=== PATIENT | male | born 1965 | race Caucasian/White ===

== ENCOUNTER 2016-12-17 18:25 | Inpatient (IN) | payer MEDICAID ==
[~2016-12-17] VITALS: Ht 185.4 cm; Wt 119.3 kg
[~2016-12-17 18:25] MED LIST: ALLO300T2 PO; ALPR0.5T8 PO; DIGO125T4 PO; DILT300C3 PO; DIPH25CA83 PO; FENO145T PO; LOSA100T11 PO; LOSA100T15 PO; METO25TA3 PO; OMEP20CA10 PO; PARO-41 PO; VIS50 PO; [UNRECOGNIZED DRUG - CODE] PO
[2016-12-17 18:26] VITALS: BP 110/56; PULSE 58; RESP 19; TEMP 97.9; O2SAT 97
[2016-12-17 19:09] LABS: BASOPHILS # (AUTO) 0.1 K/uL (0.0-0.2); BASOPHILS % (AUTO) 0.8 % (0.0-2.0); EOSINOPHILS # (AUTO) 0.1 K/uL (0.0-0.4); HEMATOCRIT 46.9 % (36-54); HEMOGLOBIN 16.1 g/dL (14.0-18.0); LYMPHOCYTES # (AUTO) 1.4 K/uL (1.0-5.5); LYMPHOCYTES % (AUTO) 20.9 % (20.5-51.5); MEAN CORPUSCULAR HEMOGLOBIN 33 pg (27-31); MEAN CORPUSCULAR HGB CONC 34 % (32-36); MEAN CORPUSCULAR VOLUME 96 fL (79.0-98.0); MONOCYTES # (AUTO) 0.7 K/uL (0.0-1.0); MONOCYTES % (AUTO) 10.8 % (1.7-9.3); NEUTROPHILS # (AUTO) 4.3 K/uL (1.8-7.7); NEUTROPHILS % (AUTO) 66.5 % (40.0-70.0); PLATELET COUNT (AUTO) 183 K/uL (130-430); RED BLOOD CELL COUNT(AUTO) 4.91 MIL/uL (4.2-6.2); RED CELL DISTRIBUTION WIDTH 14.1 % (9.0-15.0); WHITE BLOOD COUNT (AUTO) 6.6 K/uL (4.8-10.8)
[2016-12-17 19:17] LABS: INR 1.1 (0.80-1.20); PROTHROMBIN TIME 11.6 SECS (9.5-12.5)
[2016-12-17 19:30] LABS: CALCIUM 8.8 mg/dL (8.4-11.0); POTASSIUM 4.3 mmol/L (3.5-5.1)
[2016-12-17 19:36] LABS: ALBUMIN 3.8 g/dL (3.4-4.8); DIGOXIN 0.6 ng/mL (0.80-2.00); FREE T4 (FREE THYROXINE) 0.8 ng/dL (0.6-1.6); TOTAL BILIRUBIN 0.9 mg/dL (0.0-1.0); TOTAL PROTEIN, SERUM 7.9 g/dL (6.4-8.3)
[2016-12-17] MEDS ORDERED: ACETAMINOPHEN 325 MG TABLET PO ONE (19:45)
[2016-12-17] MEDS ORDERED: ASPIRIN 81 MG TAB.CHEW PO ONE (19:45)
[2016-12-17] MEDS ORDERED: ACETAMINOPHEN 325 MG TABLET ONE (19:49)
[2016-12-17] MEDS ORDERED: ASPIRIN 81 MG TAB.CHEW ONE (19:51)
[2016-12-17] MEDS ORDERED: SPIR50TA PO (20:23)
[2016-12-17 20:48] LABS: BILIRUBIN,URINE 2+ (NEGATIVE); BLOOD, URINE NEGATIVE (NEGATIVE); CLARITY/URINE HAZY (CLEAR); COLOR,URINE AMBER (YELLOW); GLUCOSE,URINE NEGATIVE (NEGATIVE); KETONES,URINE 1+ (NEGATIVE); LEUKOCYTE ESTERASE ,URINE NEGATIVE (NEGATIVE); NITRITE, URINE NEGATIVE (NEGATIVE); PH,URINE 5.5 (5.0-8.0); PROTEIN URINE 2+ (NEGATIVE)
[2016-12-17] MEDS ORDERED: LORazepam 2 MG/ML VIAL IVP PRN (21:00)
[2016-12-17] MEDS ORDERED: FOLIC ACID 1 MG, THIAMINE HCL 100 MG, MAGNESIUM SULFATE 1 GM, MVI 10 ML in NACL 0.9% 1,... IV ONE (21:00)
[2016-12-17 21:10] LABS: BACTERIA,URINE FEW /HPF (None Seen); MUCUS,URINE 3+ /LPF (None Seen); RBC,URINE 0-3 /HPF (0-3)
[2016-12-17 21:11] LABS: BARBITURATE, URINE NEGATIVE (NEG <=200); BENZODIAZEPINE, URINE POSITIVE (NEG <=150); FINE GRANULAR CASTS,URINE 30-50 /LPF (None Seen); METHAMPHETAMINES SCREEN,URINE NEGATIVE (NEG <=500); URINE AMPHETAMINE NEGATIVE (NEG <=500); URINE METHADONE NEGATIVE (NEG <=200)
[2016-12-17 21:12] LABS: CANNABINOID, URINE POSITIVE (NEG <=50); COCAINE, URINE NEGATIVE (NEG <=150); OPIATE, URINE NEGATIVE (NEG <=100); PHENCYCLIDINE SCREEN,URINE NEGATIVE (NEG <=25); UR TRICYCLIC ANTIDEPRESSANTS NEGATIVE (NEG <=300); URINE OXYCODONE SCREEN NEGATIVE (NEG <=100); URINE PROPOXYPHENE SCREEN NEGATIVE (NEG <=300)
[2016-12-17] MEDS ORDERED: MVI 10 ML VIAL IV ONE (21:12)
[2016-12-17] MEDS ORDERED: THIAMINE HCL 100 MG/ML VIAL ONE (21:12)
[2016-12-17] MEDS ORDERED: MAGNESIUM SULFATE 1 GM/2 ML VIAL ONE (21:12)
[2016-12-17] MEDS ORDERED: FOLIC ACID 5 MG/ML VIAL IV ONE (21:12)
[2016-12-17 22:00] VITALS: BP 141/90; PULSE 58; RESP 18; TEMP 97.6; O2SAT 98
[2016-12-17] MEDS: BANANA BAG 1 EA, FOLIC ACID 1 MG, THIAMINE HCL 100 MG, MAGNESIUM SULFATE 1 GM, MVI 10 M... IV SCH ×5 (22:52)
[2016-12-17] MEDS: SPIRONOLACTONE 50 MG TABLET (ALDACTONE) PO SCH (22:53)
[2016-12-17 23:45] VITALS: BP 150/85; PULSE 76; RESP 18; TEMP 98.6; O2SAT 97
[2016-12-18] MEDS: D5NS 1,000 ML IV SCH ×3 (01:37→21:00)
[2016-12-18 04:30] VITALS: BP 150/94; PULSE 85; RESP 18; TEMP 97.1; O2SAT 96
[2016-12-18] MEDS ORDERED: MORPHINE 2 MG/ML INJ. SYRINGE IVP PRN (05:30)
[2016-12-18] MEDS: PANTOPRAZOLE SODIUM 40 MG/VIAL (PROTONIX) IVP SCH ×2 (05:30→09:00)
[2016-12-18] MEDS: ASPIRIN 325 MG TABLET PO SCH ×2 (05:30→09:00)
[2016-12-18 08:00] VITALS: BP 149/117; PULSE 81; RESP 18; TEMP 97.8; O2SAT 99
[2016-12-18] MEDS ORDERED: PARoxetine HCL 20 MG TABLET PO SCH (09:00)
[2016-12-18] MEDS: OMEPRAZOLE 20 MG CAPSULE.DR (PriLOSEC) PO SCH (09:00)
[2016-12-18] MEDS ORDERED: DILTIAZEM HCL 300 MG CAP.SR.24H PO SCH (09:00)
[2016-12-18] MEDS: DIGOXIN 0.125 MG TABLET PO SCH (09:00)
[2016-12-18] MEDS: DILTIAZEM HCL 120 MG CAP.SR.24H PO SCH (09:00)
[2016-12-18] MEDS: METOPROLOL SUCCINATE 25 MG TAB.SR.24H (TOPROL XL) PO SCH (09:00)
[2016-12-18] MEDS: SPIRONOLACTONE 50 MG TABLET (ALDACTONE) PO SCH ×2 (09:00→21:44)
[2016-12-18] MEDS: ALLOPURINOL 300 MG TABLET (ZYLOPRIM) PO SCH (09:00)
[2016-12-18] MEDS: DILTIAZEM HCL 180 MG CAP.SR.24H PO SCH (09:00)
[2016-12-18 12:00] VITALS: BP 123/84; PULSE 82; RESP 16; TEMP 97.8; O2SAT 98
[2016-12-18 16:18] VITALS: BP 128/82; PULSE 83; RESP 16; TEMP 98; O2SAT 99
[2016-12-18 19:40] VITALS: BP 152/84; PULSE 60; RESP 21; TEMP 96.7; O2SAT 98
[2016-12-18] MEDS: BANANA BAG 1 EA, FOLIC ACID 1 MG, THIAMINE HCL 100 MG, MAGNESIUM SULFATE 1 GM, MVI 10 M... IV SCH ×5 (21:00)
[2016-12-18] MEDS ORDERED: TEMAZEPAM 15 MG CAPSULE PO PRN (21:00)
[2016-12-18 23:45] VITALS: BP 150/83; PULSE 92; RESP 20; TEMP 98.1; O2SAT 97
[2016-12-19] MEDS: D5NS 1,000 ML IV SCH (03:00)
[2016-12-19 04:21] VITALS: BP 140/88; PULSE 87; RESP 18; TEMP 98.9; O2SAT 90
[2016-12-19 08:00] VITALS: BP 150/92; PULSE 69; RESP 17; TEMP 97.8; O2SAT 98
[2016-12-19] MEDS: PANTOPRAZOLE SODIUM 40 MG/VIAL (PROTONIX) IVP SCH (08:14)
[2016-12-19] MEDS: ASPIRIN 325 MG TABLET PO SCH (08:14)
[2016-12-19] MEDS: ALLOPURINOL 300 MG TABLET (ZYLOPRIM) PO SCH (08:15)
[2016-12-19] MEDS: OMEPRAZOLE 20 MG CAPSULE.DR (PriLOSEC) PO SCH (08:15)
[2016-12-19] MEDS: DILTIAZEM HCL 120 MG CAP.SR.24H PO SCH (08:16)
[2016-12-19] MEDS: DILTIAZEM HCL 180 MG CAP.SR.24H PO SCH (08:16)
[2016-12-19] MEDS: DIGOXIN 0.125 MG TABLET PO SCH (08:17)
[2016-12-19] MEDS: METOPROLOL SUCCINATE 25 MG TAB.SR.24H (TOPROL XL) PO SCH (08:17)
[2016-12-19] MEDS: SPIRONOLACTONE 50 MG TABLET (ALDACTONE) PO SCH (08:18)
[2016-12-19 12:00] VITALS: BP 155/79; PULSE 60; RESP 20; TEMP 98; O2SAT 96
[2016-12-19 13:41] VITALS: BP 148/79; PULSE 87; RESP 20; TEMP 97.8; O2SAT 96
[2016-12-19] MEDS ORDERED: RIVAROXABAN 10 MG TABLET PO SCH (18:00)
[2016-12-19] MEDS ORDERED: RIVAROXABAN 20 MG TABLET PO SCH (18:00)
== END 2016-12-19 14:15 | disposition home or self-care (01) | DRG 45 ==
LOC: SED 18:25 → STU 21:11
PROVIDERS: ADMIT Internal Medicine Hospice and Palliative Medicine; ATTEND Internal Medicine Hospice and Palliative Medicine
DX: I63.9 Cerebral infarction, unspecified (principal); I48.2 Chronic atrial fibrillation; I10 Essential (primary) hypertension; F10.20 Alcohol dependence, uncomplicated; Z79.899 Other long term (current) drug therapy
CPT/HCPCS: 36415; 70450-TC; 71020-TC; 74000-TC; 80053; 80162-TC; 80307; 81000-TC; 82140-TC; 83605; 83880; 84439; 84484; 85025; 85610-TC; 87040-TC; 93005; 93306; 93880; 96365; 99285; C9113; G0482; J2060; J3411; J3475; J3490; J7030; J7042

== ENCOUNTER 2018-07-14 18:38 | Emergency (ER) | payer MEDICAID ==
[~2018-07-14] VITALS: Ht 185.4 cm; Wt 122.5 kg
[~2018-07-14 18:38] MED LIST changes: +DIGO-31 PO; -DIGO125T4 PO; -DIPH25CA83 PO; -FENO145T PO; -LOSA100T11 PO; -LOSA100T15 PO; +SPIR50TA PO; -VIS50 PO; -[UNRECOGNIZED DRUG - CODE] PO
[2018-07-14 18:48] VITALS: BP_SYST 121
--- NOTE | 2018-07-14 18:53 | NUR ---
Placed in room 03. Placed on terminal make up operator, blood pressure machine and pulse oximeter. To gown for exam. Side rails up.
--- NOTE | 2018-07-14 19:00 | NUR ---
53year old male presented to ED with complaints of HX OF AFIB AND "IT'S FLARING UP TODAY" STARTED 7 DAYS AGO; pt also reports RUQ abd pain x 9days; reports +N/V/D; awaiting for MD assess/eval
--- NOTE | 2018-07-14 19:10 | NUR ---
Dr. Koehler at bedside for assess/eval; family present at bedside
[2018-07-14 19:42] LABS: BASOPHILS # (AUTO) 0.1 K/uL (0.0-0.2); BASOPHILS % (AUTO) 1.2 % (0.0-2.0); EOSINOPHILS # (AUTO) 0.1 K/uL (0.0-0.4); EOSINOPHILS % (AUTO) 1.4 % (0.0-4.0); HEMATOCRIT 47.1 % (36-54); HEMOGLOBIN 15.9 g/dL (14.0-18.0); LYMPHOCYTES # (AUTO) 1.8 K/uL (1.0-5.5); LYMPHOCYTES % (AUTO) 29.8 % (20.5-51.5); MEAN CORPUSCULAR HEMOGLOBIN 33 pg (27-31); MEAN CORPUSCULAR HGB CONC 34 % (32-36); MEAN CORPUSCULAR VOLUME 99 fL (79.0-98.0); MONOCYTES # (AUTO) 0.6 K/uL (0.0-1.0); MONOCYTES % (AUTO) 9.5 % (1.7-9.3); NEUTROPHILS # (AUTO) 3.5 K/uL (1.8-7.7); NEUTROPHILS % (AUTO) 58.1 % (40.0-70.0); PLATELET COUNT (AUTO) 193 K/uL (130-430); RED BLOOD CELL COUNT(AUTO) 4.78 MIL/uL (4.2-6.2); RED CELL DISTRIBUTION WIDTH 13.1 % (9.0-15.0); WHITE BLOOD COUNT (AUTO) 6.1 K/uL (4.8-10.8)
[2018-07-14 19:47] LABS: CALCIUM 8.9 mg/dL (8.4-11.0); CREATININE 0.97 mg/dL (0.55-1.30); POTASSIUM 4.3 mmol/L (3.5-5.1)
[2018-07-14 19:51] LABS: INR 1.2 (0.80-1.20); PROTHROMBIN TIME 11.9 SECS (9.5-12.5)
[2018-07-14 19:55] LABS: ALBUMIN 2.8 g/dL (3.4-4.8); TOTAL BILIRUBIN 0.7 mg/dL (0.0-1.0)
--- NOTE | 2018-07-14 20:05 | NUR ---
pt resting comfortably in bed NAD; reports 07/08 RUQ abd; VSS BP 120/69 P99 R14 O2sat 98%; family at bedside; awaiting for Dr. Vamshi santos/assess
--- NOTE | 2018-07-14 20:25 | NUR ---
Tramadol and Zofran given as ordered; will reasses and continue to monitor
[2018-07-14] MEDS ORDERED: ONDANSETRON 4 MG ODT TAB PO ONE (20:30)
[2018-07-14] MEDS ORDERED: traMADol HCL HCL 50 MG TABLET (ULTRAM) PO ONE (20:30)
--- NOTE | 2018-07-14 21:24 | NUR ---
Dr. Bonds at bedside discussing plan of care and treatment with pt/family
[2018-07-14 21:50] VITALS: BP_SYST 102
--- NOTE | 2018-07-14 21:50 | NUR ---
Patient given written and verbal discharge instructions and verbalizes understanding. ER MD discussed with patient the results and treatment provided. Patient in stable condition. ID arm band removed. Rx of Tylenol #3 given. Patient educated on pain management and to follow up with PMD within 2-3days. Pain Scale 5/10; tolerable and requires no further intervention; pt and MD agreeable to discharge home. Opportunity for questions provided and answered. Medication side effect fact sheet provided.
== END 2018-07-14 21:50 | disposition home or self-care (01) ==
LOC: SED 18:38
DX: R10.13 Epigastric pain (principal); F10.10 Alcohol abuse, uncomplicated; R00.2 Palpitations; R06.02 Shortness of breath; I48.91 Unspecified atrial fibrillation; I10 Essential (primary) hypertension; Z79.899 Other long term (current) drug therapy
CPT/HCPCS: 36415; 71045; 74176; 80053; 82150; 82550; 83690; 83880; 84484; 85025; 85610; 85730; 93005; 99285; G0482; Q0162

== ENCOUNTER 2018-09-07 05:47 | Inpatient (IN) | payer MEDICAID ==
[2018-09-07] VITALS (19 sets, daily range): BP systolic 77–130
[~2018-09-07] VITALS: Ht 185.4 cm; Wt 121.6 kg
[2018-09-07] MEDS ORDERED: FUROSEMIDE 100 MG/10 ML VIAL IVP ONE (06:00)
[2018-09-07] MEDS ORDERED: SPIR25TA PO (06:04)
[2018-09-07] MEDS ORDERED: DILT240C54 PO (06:04)
[2018-09-07] MEDS ORDERED: APIX2.5T PO (06:04)
[2018-09-07] MEDS ORDERED: LIDOCAINE/EPI 1% 1:100000 20 ML VIAL INJ ONE (06:22)
[2018-09-07 06:26] LABS: HEMATOCRIT 49.8 % (36-54); HEMOGLOBIN 16.4 g/dL (14.0-18.0); MEAN CORPUSCULAR HEMOGLOBIN 32 pg (27-31); MEAN CORPUSCULAR HGB CONC 33 % (32-36); MEAN CORPUSCULAR VOLUME 98 fL (79.0-98.0); PLATELET COUNT (AUTO) 201 K/uL (130-430); RED BLOOD CELL COUNT(AUTO) 5.08 MIL/uL (4.2-6.2); RED CELL DISTRIBUTION WIDTH 13.2 % (9.0-15.0); WHITE BLOOD COUNT (AUTO) 15.6 K/uL (4.8-10.8)
[2018-09-07 06:29] LABS: CREATININE 2.66 mg/dL (0.55-1.30)
[2018-09-07 06:34] LABS: ALBUMIN 2.9 g/dL (3.4-4.8); TOTAL BILIRUBIN 10.7 mg/dL (0.0-1.0)
[2018-09-07 06:52] LABS: BAND % (MANUAL) 19 % (0-6); BASOPHILS % (MANUAL) 0 % (0-2); EOSINOPHILS % (MANUAL) 0 % (0-7); LYMPHOCYTES % (MANUAL) 2 % (20-46); METAMYELOCYTES % 1 % (0-0); MONOCYTES % (MANUAL) 4 % (0-11)
[2018-09-07 06:53] LABS: INR 1.4 (0.80-1.20); PROTHROMBIN TIME 14.8 SECS (9.5-12.5)
[2018-09-07] MEDS ORDERED: ALBUMIN HUMAN 25% 50 ML IV ONE (07:00)
[2018-09-07 07:53] LABS: APPEARANCE,SPUN,BODY FLUID CLEAR (CLEAR); BODY FLUID COLOR YELLOW (LT YELLOW); BODY FLUID SOURCE/ TYPE PARACENTESIS; BODY FLUID TOTAL VOLUME 7600 mL; SOURCE/TYPE ,BODY FLUID PARACENTESIS
[2018-09-07 07:55] LABS: BF APPEARANCE UNSPUN HAZY (CLEAR)
[2018-09-07] MEDS ORDERED: cefTRIAXone 1 GM in D5W 50 ML IV ONE (08:00)
[2018-09-07] MEDS ORDERED: NACL 0.9% 1,000 ML IV ONE ×2 (08:00→11:15)
[2018-09-07] MEDS ORDERED: NS 250 ML IV ONE (08:15)
[2018-09-07] MEDS ORDERED: cefTRIAXone 1 GM VIAL ONE (08:38)
[2018-09-07 09:17] LABS: MONOCYTES,BODY FLUID 49 %; NEUTROPHIL, BODY FLUID 51 %
[2018-09-07] MEDS: NACL 0.9% 1,000 ML IV SCH ×2 (10:10→14:45)
[2018-09-07] MEDS ORDERED: ONDANSETRON HCL 4 MG/2 ML VIAL IVP PRN (10:30)
[2018-09-07] MEDS ORDERED: ALPRAZolam 0.25 MG TABLET PO SCH (10:30)
[2018-09-07] MEDS ORDERED: ACETAMINOPHEN 325 MG TABLET PO PRN (10:30)
[2018-09-07] MEDS ORDERED: ALBUMIN HUMAN 5% 250 ML IV ONE ×2 (10:45→15:00)
[2018-09-07 11:02] LABS: RBC, BODY FLUID 627 /uL
[2018-09-07 11:03] LABS: WBC, BODY FLUID 459 /uL
[2018-09-07 11:34] LABS: BODY FLUID GLUCOSE 114 mg/dL; BODY FLUID TOTAL PROTEIN 2.6 g/dL
[2018-09-07] MEDS: PIPERACILLIN/TAZO 2.25G/DEX-IS 50 ML IV SCH ×3 (11:37→22:27)
[2018-09-07] MEDS ORDERED: PIPERACILLIN/TAZO 3.375/DEX-IS 50 ML IV SCH (12:00)
[2018-09-07] MEDS: HYDROcodone/ACETAMIN 10-325 MG TAB PO PRN ×2 (13:46→22:28)
[2018-09-07] MEDS ORDERED: NOREPINEPHRINE 4 MG/4 ML VIAL IV ONE (15:29)
[2018-09-07] MEDS: NOREPINEPHRINE BITARTRATE 4 MG in D5W 246 ML IV PRN ×2 (15:35→23:57)
[2018-09-07] MEDS: LORazepam 2 MG/ML VIAL IVP PRN ×2 (17:29→22:28)
[2018-09-07] MEDS: APIXABAN 2.5 MG TABLET PO SCH (21:24)
[2018-09-08] VITALS (24 sets, daily range): BP systolic 92–123
[2018-09-08] MEDS: NACL 0.9% 1,000 ML IV SCH (01:23)
[2018-09-08] MEDS: PIPERACILLIN/TAZO 2.25G/DEX-IS 50 ML IV SCH ×4 (05:01→22:29)
[2018-09-08] MEDS: OMEPRAZOLE 20 MG CAPSULE.DR (PriLOSEC) PO SCH (06:02)
[2018-09-08 07:23] LABS: BASOPHILS % (AUTO) 0.1 % (0.0-2.0); HEMATOCRIT 40.9 % (36-54); LYMPHOCYTES # (AUTO) 0.5 K/uL (1.0-5.5); MEAN CORPUSCULAR HEMOGLOBIN 31 pg (27-31); MEAN CORPUSCULAR HGB CONC 32 % (32-36); MEAN CORPUSCULAR VOLUME 97 fL (79.0-98.0); MONOCYTES % (AUTO) 5.5 % (1.7-9.3); NEUTROPHILS # (AUTO) 16.8 K/uL (1.8-7.7); NEUTROPHILS % (AUTO) 91.4 % (40.0-70.0); PLATELET COUNT (AUTO) 133 K/uL (130-430); RED BLOOD CELL COUNT(AUTO) 4.22 MIL/uL (4.2-6.2); RED CELL DISTRIBUTION WIDTH 13.2 % (9.0-15.0)
[2018-09-08 08:02] LABS: ALBUMIN 2.4 g/dL (3.4-4.8); CALCIUM 8.4 mg/dL (8.4-11.0); CREATININE 1.6 mg/dL (0.55-1.30); PHOSPHORUS 4.5 mg/dL (2.7-4.5); POTASSIUM 3.9 mmol/L (3.5-5.1); TOTAL BILIRUBIN 7.9 mg/dL (0.0-1.0)
[2018-09-08] MEDS: ALLOPURINOL 300 MG TABLET (ZYLOPRIM) PO SCH (08:53)
[2018-09-08] MEDS: THIAMINE HCL 100 MG TABLET PO SCH (08:54)
[2018-09-08] MEDS: DILTIAZEM HCL 240 MG CAP.SR.24H PO SCH (08:54)
[2018-09-08] MEDS: METOPROLOL SUCCINATE 25 MG TAB.SR.24H (TOPROL XL) PO SCH (08:55)
[2018-09-08] MEDS: FOLIC ACID 1 MG TABLET PO SCH (08:55)
[2018-09-08] MEDS: MULTIVITS,CA,MINERALS/IRON/FA 1 TABLET PO SCH (08:55)
[2018-09-08] MEDS: PARoxetine HCL 20 MG TABLET PO SCH (08:55)
[2018-09-08] MEDS: APIXABAN 2.5 MG TABLET PO SCH ×2 (08:56→20:03)
[2018-09-08] MEDS ORDERED: SPIRONOLACTONE 25 MG TABLET (ALDACTONE) PO SCH (09:00)
[2018-09-08] MEDS ORDERED: ALBUMIN HUMAN 25% 50 ML IV ONE (09:45)
[2018-09-08 09:51] LABS: WHITE BLOOD COUNT (AUTO) 18.3 K/uL (4.8-10.8)
[2018-09-08] MEDS: LORazepam 2 MG/ML VIAL IVP PRN ×2 (10:57→22:29)
[2018-09-08] MEDS: KCL 20 mEq in D5/0.45NS 1000mL 1,000 ML IV SCH ×2 (13:04→22:28)
[2018-09-08] MEDS ORDERED: DIGOXIN 0.5 MG/2 ML AMP IVP ONE (13:15)
[2018-09-08] MEDS ORDERED: DILTIAZEM HCL 25 MG/5 ML VIAL IVP ONE (13:15)
[2018-09-08] MEDS: HYDROcodone/ACETAMIN 5-325 MG TAB (NORCO/ VICODIN) PO PRN (16:51)
[2018-09-08] MEDS ORDERED: DILTIAZEM HCL 125 MG in D5W 100 ML IV SCH (18:30)
[2018-09-08] MEDS: HYDROcodone/ACETAMIN 10-325 MG TAB PO PRN (21:40)
[2018-09-08] MEDS ORDERED: DILTIAZEM HCL 25 MG/5 ML VIAL IVP PRN (22:45)
[2018-09-09] VITALS (13 sets, daily range): BP systolic 94–113
[2018-09-09] MEDS: OMEPRAZOLE 20 MG CAPSULE.DR (PriLOSEC) PO SCH (05:04)
[2018-09-09] MEDS: PIPERACILLIN/TAZO 2.25G/DEX-IS 50 ML IV SCH ×4 (05:05→23:22)
[2018-09-09 06:13] LABS: EOSINOPHILS # (AUTO) 0.1 K/uL (0.0-0.4); LYMPHOCYTES # (AUTO) 0.4 K/uL (1.0-5.5); MONOCYTES # (AUTO) 0.4 K/uL (0.0-1.0); NEUTROPHILS # (AUTO) 4.1 K/uL (1.8-7.7); RED BLOOD CELL COUNT(AUTO) 4.12 MIL/uL (4.2-6.2)
[2018-09-09 06:36] LABS: ALBUMIN 2.2 g/dL (3.4-4.8); CALCIUM 8.3 mg/dL (8.4-11.0); CREATININE 1.05 mg/dL (0.55-1.30); POTASSIUM 4.5 mmol/L (3.5-5.1); TOTAL BILIRUBIN 7.6 mg/dL (0.0-1.0)
[2018-09-09 07:12] LABS: BASOPHILS % (AUTO) 0.5 % (0.0-2.0); EOSINOPHILS % (AUTO) 1.8 % (0.0-4.0); HEMATOCRIT 40.4 % (36-54); HEMOGLOBIN 13.2 g/dL (14.0-18.0); LYMPHOCYTES % (AUTO) 8.5 % (20.5-51.5); MEAN CORPUSCULAR HEMOGLOBIN 32 pg (27-31); MEAN CORPUSCULAR HGB CONC 33 % (32-36); MEAN CORPUSCULAR VOLUME 98 fL (79.0-98.0); NEUTROPHILS % (AUTO) 81.2 % (40.0-70.0); PLATELET COUNT (AUTO) 103 K/uL (130-430); RED CELL DISTRIBUTION WIDTH 13.5 % (9.0-15.0)
[2018-09-09 07:35] LABS: C-REACTIVE PROTEIN QUANT 13.6 mg/dL (0-0.5)
[2018-09-09] MEDS: DIGOXIN 0.5 MG/2 ML AMP IVP SCH (08:25)
[2018-09-09] MEDS: MULTIVITS,CA,MINERALS/IRON/FA 1 TABLET PO SCH (08:28)
[2018-09-09] MEDS: PARoxetine HCL 20 MG TABLET PO SCH (08:29)
[2018-09-09] MEDS: THIAMINE HCL 100 MG TABLET PO SCH (08:29)
[2018-09-09] MEDS: APIXABAN 2.5 MG TABLET PO SCH ×2 (08:29→21:07)
[2018-09-09] MEDS: FOLIC ACID 1 MG TABLET PO SCH (08:29)
[2018-09-09] MEDS: DILTIAZEM HCL 240 MG CAP.SR.24H PO SCH (08:30)
[2018-09-09] MEDS: METOPROLOL SUCCINATE 25 MG TAB.SR.24H (TOPROL XL) PO SCH (08:31)
[2018-09-09] MEDS: ALLOPURINOL 300 MG TABLET (ZYLOPRIM) PO SCH (08:31)
[2018-09-09 08:35] LABS: ERYTHROCYTE SEDIMENTATION RATE 16 MM/HR (0-15)
[2018-09-09] MEDS: HYDROcodone/ACETAMIN 10-325 MG TAB PO PRN (14:33)
[2018-09-09] MEDS: HYDROcodone/ACETAMIN 5-325 MG TAB (NORCO/ VICODIN) PO PRN (21:08)
[2018-09-09] MEDS: LORazepam 2 MG/ML VIAL IVP PRN (23:23)
[2018-09-10 03:15] VITALS: BP_SYST 117
[2018-09-10] MEDS: OMEPRAZOLE 20 MG CAPSULE.DR (PriLOSEC) PO SCH (05:27)
[2018-09-10] MEDS: PIPERACILLIN/TAZO 2.25G/DEX-IS 50 ML IV SCH ×4 (05:28→22:37)
[2018-09-10 07:24] LABS: C-REACTIVE PROTEIN QUANT 11.3 mg/dL (0-0.5); CALCIUM 8.3 mg/dL (8.4-11.0); CREATININE 0.86 mg/dL (0.55-1.30); POTASSIUM 4.4 mmol/L (3.5-5.1)
[2018-09-10 07:36] LABS: HEMATOCRIT 38.7 % (36-54); HEMOGLOBIN 13.6 g/dL (14.0-18.0); MEAN CORPUSCULAR HEMOGLOBIN 34 pg (27-31); MEAN CORPUSCULAR HGB CONC 35 % (32-36); MEAN CORPUSCULAR VOLUME 98 fL (79.0-98.0); PLATELET COUNT (AUTO) 183 K/uL (130-430); RED CELL DISTRIBUTION WIDTH 13.9 % (9.0-15.0); WHITE BLOOD COUNT (AUTO) 11.6 K/uL (4.8-10.8)
[2018-09-10 08:02] LABS: RED BLOOD CELL COUNT(AUTO) 3.97 MIL/uL (4.2-6.2)
[2018-09-10 08:24] LABS: ERYTHROCYTE SEDIMENTATION RATE 1 MM/HR (0-15)
[2018-09-10] MEDS ORDERED: THORAZINE (chlorproMAZINE) 25 MG TAB PO ONE (10:15)
[2018-09-10 10:23] LABS: BAND % (MANUAL) 6 % (0-6); BASOPHILS % (MANUAL) 0 % (0-2); EOSINOPHILS % (MANUAL) 3 % (0-7); LYMPHOCYTES % (MANUAL) 7 % (20-46); MONOCYTES % (MANUAL) 9 % (0-11)
[2018-09-10] MEDS: APIXABAN 2.5 MG TABLET PO SCH ×2 (10:32→20:37)
[2018-09-10] MEDS: DILTIAZEM HCL 240 MG CAP.SR.24H PO SCH (10:33)
[2018-09-10] MEDS: PARoxetine HCL 20 MG TABLET PO SCH (10:33)
[2018-09-10] MEDS: THIAMINE HCL 100 MG TABLET PO SCH (10:33)
[2018-09-10] MEDS: ALLOPURINOL 300 MG TABLET (ZYLOPRIM) PO SCH (10:33)
[2018-09-10] MEDS: FOLIC ACID 1 MG TABLET PO SCH (10:33)
[2018-09-10] MEDS: DIGOXIN 0.5 MG/2 ML AMP IVP SCH (10:34)
[2018-09-10] MEDS: LORazepam 2 MG/ML VIAL IVP PRN ×2 (10:35→22:37)
[2018-09-10] MEDS: MULTIVITS,CA,MINERALS/IRON/FA 1 TABLET PO SCH (10:36)
[2018-09-10] MEDS: METOPROLOL SUCCINATE 25 MG TAB.SR.24H (TOPROL XL) PO SCH (10:37)
[2018-09-10 12:43] VITALS: BP_SYST 130
[2018-09-10 16:43] VITALS: BP_SYST 105
[2018-09-10] MEDS: HYDROcodone/ACETAMIN 10-325 MG TAB PO PRN ×2 (18:36→22:36)
[2018-09-11 00:12] VITALS: BP_SYST 118
[2018-09-11] MEDS: PIPERACILLIN/TAZO 2.25G/DEX-IS 50 ML IV SCH ×3 (05:26→17:14)
[2018-09-11] MEDS: OMEPRAZOLE 20 MG CAPSULE.DR (PriLOSEC) PO SCH (05:26)
[2018-09-11 06:32] LABS: BASOPHILS % (AUTO) 0.5 % (0.0-2.0); EOSINOPHILS # (AUTO) 0.2 K/uL (0.0-0.4); HEMATOCRIT 43.4 % (36-54); HEMOGLOBIN 13.9 g/dL (14.0-18.0); LYMPHOCYTES % (AUTO) 18.4 % (20.5-51.5); MEAN CORPUSCULAR HEMOGLOBIN 31 pg (27-31); MEAN CORPUSCULAR HGB CONC 32 % (32-36); MEAN CORPUSCULAR VOLUME 98 fL (79.0-98.0); MONOCYTES # (AUTO) 0.9 K/uL (0.0-1.0); MONOCYTES % (AUTO) 16.9 % (1.7-9.3); NEUTROPHILS # (AUTO) 3.2 K/uL (1.8-7.7); NEUTROPHILS % (AUTO) 60.2 % (40.0-70.0); PLATELET COUNT (AUTO) 102 K/uL (130-430); RED BLOOD CELL COUNT(AUTO) 4.45 MIL/uL (4.2-6.2); RED CELL DISTRIBUTION WIDTH 13.5 % (9.0-15.0); WHITE BLOOD COUNT (AUTO) 5.3 K/uL (4.8-10.8)
[2018-09-11 06:59] LABS: ALBUMIN 2.1 g/dL (3.4-4.8); C-REACTIVE PROTEIN QUANT 9.6 mg/dL (0-0.5); CREATININE 0.98 mg/dL (0.55-1.30); POTASSIUM 4.7 mmol/L (3.5-5.1); TOTAL BILIRUBIN 10.2 mg/dL (0.0-1.0)
[2018-09-11 07:30] VITALS: BP_SYST 122
[2018-09-11 08:47] LABS: ERYTHROCYTE SEDIMENTATION RATE 24 MM/HR (0-15)
[2018-09-11] MEDS: DILTIAZEM HCL 240 MG CAP.SR.24H PO SCH (09:12)
[2018-09-11] MEDS: METOPROLOL SUCCINATE 25 MG TAB.SR.24H (TOPROL XL) PO SCH (09:13)
[2018-09-11] MEDS: PARoxetine HCL 20 MG TABLET PO SCH (09:13)
[2018-09-11] MEDS: FOLIC ACID 1 MG TABLET PO SCH (09:14)
[2018-09-11] MEDS: DIGOXIN 0.5 MG/2 ML AMP IVP SCH (09:14)
[2018-09-11] MEDS: ALLOPURINOL 300 MG TABLET (ZYLOPRIM) PO SCH (09:14)
[2018-09-11] MEDS: THIAMINE HCL 100 MG TABLET PO SCH (09:14)
[2018-09-11] MEDS: MULTIVITS,CA,MINERALS/IRON/FA 1 TABLET PO SCH (09:14)
[2018-09-11] MEDS: APIXABAN 2.5 MG TABLET PO SCH (09:16)
[2018-09-11 12:05] VITALS: BP_SYST 117
[2018-09-11 16:42] VITALS: BP_SYST 123
[2018-09-11] MEDS ORDERED: THIA100T13 PO (18:00)
[2018-09-11] MEDS ORDERED: MULT-33 PO (18:00)
[2018-09-11] MEDS ORDERED: FOLI-43 PO (18:00)
[2018-09-11 18:21] VITALS: BP_SYST 124
[2018-09-11] MEDS ORDERED: LEVO750T45 PO (19:47)
== END 2018-09-11 20:05 | disposition home or self-care (01) | DRG 720 ==
LOC: SED 05:47 → STU 08:26 → SIC 09:57 → STU 09-09 10:00
PROVIDERS: ADMIT Preventive Medicine Preventive Medicine/Occupational Environmental Medicine; ATTEND Preventive Medicine Preventive Medicine/Occupational Environmental Medicine
PROC: 0W9G3ZZ Drainage of Peritoneal Cavity, Percutaneous Approach (ICD-10-PCS; principal; 2018-09-09)
DX: A41.9 Sepsis, unspecified organism (principal); J96.00 Acute respiratory failure, unspecified whether with hypoxia or hypercapnia; R57.9 Shock, unspecified; E43 Unspecified severe protein-calorie malnutrition; K65.2 Spontaneous bacterial peritonitis; D69.6 Thrombocytopenia, unspecified; N17.9 Acute kidney failure, unspecified; E83.52 Hypercalcemia; K70.11 Alcoholic hepatitis with ascites; E87.1 Hypo-osmolality and hyponatremia; M10.9 Gout, unspecified; D64.9 Anemia, unspecified; F10.20 Alcohol dependence, uncomplicated; F12.90 Cannabis use, unspecified, uncomplicated; I42.6 Alcoholic cardiomyopathy; I48.2 Chronic atrial fibrillation; K70.31 Alcoholic cirrhosis of liver with ascites; K76.6 Portal hypertension; Z80.3 Family history of malignant neoplasm of breast; Z86.73 Personal history of transient ischemic attack (TIA), and cerebral infarction without residual deficits; F41.9 Anxiety disorder, unspecified; Z68.35 Body mass index [BMI] 35.0-35.9, adult; G89.29 Other chronic pain; Z79.899 Other long term (current) drug therapy; R73.9 Hyperglycemia, unspecified; R74.0 Nonspecific elevation of levels of transaminase and lactic acid dehydrogenase [LDH]; Z56.0 Unemployment, unspecified; I11.0 Hypertensive heart disease with heart failure; I50.9 Heart failure, unspecified; E66.9 Obesity, unspecified
CPT/HCPCS: 36415; 49083; 71045; 76700-TC; 80048; 80053; 82140-TC; 82947-TC; 83605; 83690-TC; 83735-TC; 84100-TC; 84157-TC; 84484; 85007; 85025; 85027; 85610-TC; 85651-TC; 85730-TC; 86140; 87040-TC; 87070-TC; 87081; 88108; 88305; 89051-TC; 89060-TC; 93005; 96365; 96367; 99291; G0482; J0696; J1160; J2060; J2543; J3490; J7030; J7050; J7060; P9041; P9046; Q0161

== ENCOUNTER 2018-12-29 12:41 | Emergency (ER) | payer MEDICAID ==
[~2018-12-29] VITALS: Ht 185.4 cm; Wt 117.0 kg
[2018-12-29 12:41] VITALS: BP_SYST 106
[~2018-12-29 12:41] MED LIST changes: +APIX2.5T PO; -DIGO-31 PO; +DILT240C54 PO; -DILT300C3 PO; +FOLI-43 PO; +LEVO750T45 PO; +MULT-33 PO; +SPIR25TA PO; -SPIR50TA PO; +THIA100T13 PO
[2018-12-29] MEDS ORDERED: MORPHINE 4 MG/ML INJ. SYRINGE IVP ONE (13:00)
[2018-12-29 13:48] LABS: BASOPHILS % (AUTO) 0.6 % (0.0-2.0); EOSINOPHILS # (AUTO) 0.1 K/uL (0.0-0.4); EOSINOPHILS % (AUTO) 2.2 % (0.0-4.0); HEMATOCRIT 43.8 % (36-54); HEMOGLOBIN 13.9 g/dL (14.0-18.0); LYMPHOCYTES % (AUTO) 21.3 % (20.5-51.5); MEAN CORPUSCULAR HEMOGLOBIN 29 pg (27-31); MEAN CORPUSCULAR HGB CONC 32 % (32-36); MEAN CORPUSCULAR VOLUME 91 fL (79.0-98.0); MONOCYTES # (AUTO) 0.4 K/uL (0.0-1.0); MONOCYTES % (AUTO) 8.7 % (1.7-9.3); NEUTROPHILS # (AUTO) 3.2 K/uL (1.8-7.7); NEUTROPHILS % (AUTO) 67.2 % (40.0-70.0); PLATELET COUNT (AUTO) 131 K/uL (130-430); RED BLOOD CELL COUNT(AUTO) 4.82 MIL/uL (4.2-6.2); RED CELL DISTRIBUTION WIDTH 13.1 % (9.0-15.0); WHITE BLOOD COUNT (AUTO) 4.7 K/uL (4.8-10.8)
[2018-12-29 13:54] LABS: ANION GAP 10 (5-15); CALCIUM 8.5 mg/dL (8.4-11.0); CHLORIDE 103 mmol/L (98-107); CREATININE 0.97 mg/dL (0.55-1.30); GLUCOSE 137 mg/dL (70-99); POTASSIUM 4.4 mmol/L (3.5-5.1); SODIUM SERUM 137 mmol/L (136-145); UREA NITROGEN, BLOOD 13 mg/dL (8-21)
[2018-12-29 13:55] LABS: INR 1.3 (0.80-1.20); PROTHROMBIN TIME 12.9 SECS (9.5-12.5)
[2018-12-29 13:56] LABS: GFR AFRICAN AMERICAN 104 mL/min (>90)
[2018-12-29 14:04] LABS: ALANINE AMINOTRANSFERASE 12 U/L (12-78); ALBUMIN 3.1 g/dL (3.4-4.8); ASPARTATE AMINOTRANSFERASE 20 U/L (10-37); TOTAL BILIRUBIN 1.1 mg/dL (0.0-1.0)
[2018-12-29] MEDS ORDERED: LIDOCAINE 1%, 20 ML MDV 20 ML ONE (15:44)
[2018-12-29] MEDS ORDERED: LIDOCAINE 1% 10 MG/ML, 20 ML MDV INJ ONE (15:45)
[2018-12-29] MEDS ORDERED: ALBUMIN HUMAN 25% 50 ML IV ONE ×3 (16:45)
[2018-12-29 17:58] VITALS: BP_SYST 111
== END 2018-12-29 17:58 | disposition home or self-care (01) ==
LOC: SED 12:41
DX: R18.8 Other ascites (principal); R06.00 Dyspnea, unspecified; D64.9 Anemia, unspecified; I48.91 Unspecified atrial fibrillation; I10 Essential (primary) hypertension; Z79.899 Other long term (current) drug therapy
CPT/HCPCS: 36415; 49082; 71045; 74176; 80053; 83880; 84484; 85025; 85610; 85730; 87070; 93005; 96372; 96374; 99285; J2001; J2270; P9046; 99284

== ENCOUNTER 2019-02-11 16:09 | Inpatient (IN) | payer MEDICAID ==
[~2019-02-11] VITALS: Ht 185.4 cm; Wt 111.1 kg
[2019-02-11 16:10] VITALS: BP_SYST 107
[2019-02-11] MEDS ORDERED: NACL 0.9% 1,000 ML IV ONE (16:11)
[2019-02-11 16:50] LABS: HEMATOCRIT 45.3 % (36-54); HEMOGLOBIN 15.5 g/dL (14.0-18.0); MEAN CORPUSCULAR HEMOGLOBIN 31 pg (27-31); MEAN CORPUSCULAR HGB CONC 34 % (32-36); MEAN CORPUSCULAR VOLUME 89 fL (79.0-98.0); PLATELET COUNT (AUTO) 129 K/uL (130-430); RED BLOOD CELL COUNT(AUTO) 5.08 MIL/uL (4.2-6.2); RED CELL DISTRIBUTION WIDTH 14.1 % (9.0-15.0); WHITE BLOOD COUNT (AUTO) 5.1 K/uL (4.8-10.8)
[2019-02-11 16:51] LABS: EOSINOPHILS # (AUTO) 0.1 K/uL (0.0-0.4); EOSINOPHILS % (AUTO) 1.8 % (0.0-4.0); LYMPHOCYTES # (AUTO) 1.2 K/uL (1.0-5.5); LYMPHOCYTES % (AUTO) 23.8 % (20.5-51.5); MONOCYTES # (AUTO) 0.4 K/uL (0.0-1.0); MONOCYTES % (AUTO) 8.6 % (1.7-9.3); NEUTROPHILS # (AUTO) 3.3 K/uL (1.8-7.7); NEUTROPHILS % (AUTO) 64.8 % (40.0-70.0)
[2019-02-11 16:59] LABS: CALCIUM 8.6 mg/dL (8.4-11.0); POTASSIUM 4.2 mmol/L (3.5-5.1)
[2019-02-11 17:06] LABS: ALBUMIN 3.4 g/dL (3.4-4.8); TOTAL BILIRUBIN 0.9 mg/dL (0.0-1.0)
[2019-02-11 18:00] LABS: INR 1.3 (0.80-1.20); PROTHROMBIN TIME 12.9 SECS (9.5-12.5)
[2019-02-11 20:13] VITALS: BP_SYST 127
[2019-02-11] MEDS ORDERED: ACETAMINOPHEN 325 MG TABLET PO PRN (21:30)
[2019-02-11] MEDS ORDERED: HYDROcodone/ACETAMIN 5-325 MG TAB (NORCO/ VICODIN) PO PRN (21:30)
[2019-02-11] MEDS ORDERED: ONDANSETRON HCL 4 MG/2 ML VIAL IVP PRN (21:30)
[2019-02-11] MEDS: HYDROcodone/ACETAMIN 10-325 MG TAB PO PRN (21:52)
[2019-02-12 01:25] VITALS: BP_SYST 106
[2019-02-12] MEDS: HYDROcodone/ACETAMIN 10-325 MG TAB PO PRN ×4 (02:24→15:41)
[2019-02-12 07:39] LABS: BILIRUBIN,URINE NEGATIVE (NEGATIVE); BLOOD, URINE NEGATIVE (NEGATIVE); CLARITY/URINE CLEAR (CLEAR); COLOR,URINE YELLOW (YELLOW); GLUCOSE,URINE NEGATIVE (NEGATIVE); KETONES,URINE NEGATIVE (NEGATIVE); LEUKOCYTE ESTERASE ,URINE TRACE (NEGATIVE); NITRITE, URINE NEGATIVE (NEGATIVE); PROTEIN URINE NEGATIVE (NEGATIVE)
[2019-02-12] MEDS ORDERED: LEVOFLOXACIN 500 MG/D5W 100 ML IV SCH (08:00)
[2019-02-12 08:15] VITALS: BP_SYST 108
[2019-02-12 08:25] LABS: BACTERIA,URINE FEW /HPF (None Seen); RBC,URINE 0-3 /HPF (0-3)
[2019-02-12 08:26] LABS: MUCUS,URINE 2+ /LPF (None Seen); YEAST,URINE None Seen /HPF (None Seen)
[2019-02-12 11:48] VITALS: BP_SYST 124
[2019-02-12] MEDS ORDERED: ACETAMINOPHEN 325 MG TABLET PO PRN (12:30)
[2019-02-12] MEDS ORDERED: ONDANSETRON HCL 4 MG/2 ML VIAL IVP PRN (12:30)
[2019-02-12] MEDS ORDERED: ALPRAZolam 0.25 MG TABLET PO PRN (13:15)
[2019-02-12] MEDS ORDERED: SPIRONOLACTONE 25 MG TABLET (ALDACTONE) PO SCH (15:15)
[2019-02-12] MEDS ORDERED: METOPROLOL SUCCINATE 25 MG TAB.SR.24H (TOPROL XL) PO ONE (15:15)
[2019-02-12] MEDS ORDERED: OMEPRAZOLE 20 MG CAPSULE.DR (PriLOSEC) PO ONE (15:15)
[2019-02-12] MEDS ORDERED: DILTIAZEM HCL 240 MG CAP.SR.24H PO ONE (15:15)
[2019-02-12] MEDS ORDERED: MULTIVITS,CA,MINERALS/IRON/FA 1 TABLET PO ONE (15:15)
[2019-02-12] MEDS ORDERED: ALLOPURINOL 300 MG TABLET (ZYLOPRIM) PO ONE (15:15)
[2019-02-12] MEDS ORDERED: PARoxetine HCL 20 MG TABLET PO ONE (15:15)
[2019-02-12] MEDS ORDERED: THIAMINE HCL 100 MG TABLET PO ONE (15:15)
[2019-02-12] MEDS ORDERED: FOLIC ACID 1 MG TABLET PO ONE (15:15)
[2019-02-12] MEDS: NORMAL SALINE 5 ML DISP.SYRIN IVF SCH ×2 (15:20→21:50)
[2019-02-12] MEDS ORDERED: OMEP40CA33 PO (15:37)
[2019-02-12] MEDS ORDERED: FURO-150 PO (15:37)
[2019-02-12] MEDS ORDERED: DIGO125T79 PO (15:37)
[2019-02-12] MEDS ORDERED: DILT240C54 PO (15:37)
[2019-02-12] MEDS ORDERED: SPIR50TA PO (15:37)
[2019-02-12 17:06] VITALS: BP_SYST 115
[2019-02-12] MEDS ORDERED: DIGOXIN 0.125 MG TABLET PO ONE (17:15)
[2019-02-12] MEDS ORDERED: cefTRIAXone 1 GM VIAL ONE (19:10)
[2019-02-12 20:00] VITALS: BP_SYST 109
[2019-02-12] MEDS: APIXABAN 2.5 MG TABLET PO SCH (20:11)
[2019-02-12] MEDS: cefTRIAXone 1 GM in D5W 50 ML IV SCH (20:13)
[2019-02-12] MEDS: HYDROcodone/ACETAMIN 5-325 MG TAB (NORCO/ VICODIN) PO PRN (20:23)
[2019-02-13 00:08] VITALS: BP_SYST 123
[2019-02-13] MEDS: HYDROcodone/ACETAMIN 5-325 MG TAB (NORCO/ VICODIN) PO PRN ×2 (00:27→17:58)
[2019-02-13] MEDS: HYDROcodone/ACETAMIN 10-325 MG TAB PO PRN ×4 (04:48→21:27)
[2019-02-13] MEDS: NORMAL SALINE 5 ML DISP.SYRIN IVF SCH ×3 (04:48→21:27)
[2019-02-13 06:46] LABS: CREATININE 0.79 mg/dL (0.55-1.30); POTASSIUM 4.2 mmol/L (3.5-5.1)
[2019-02-13 07:07] LABS: WHITE BLOOD COUNT (AUTO) 5.1 K/uL (4.8-10.8)
[2019-02-13 07:08] LABS: EOSINOPHILS % (AUTO) 4.1 % (0.0-4.0); HEMOGLOBIN 14.2 g/dL (14.0-18.0); MEAN CORPUSCULAR HEMOGLOBIN 30 pg (27-31); MEAN CORPUSCULAR HGB CONC 34 % (32-36); MEAN CORPUSCULAR VOLUME 89 fL (79.0-98.0); MONOCYTES % (AUTO) 9.6 % (1.7-9.3); NEUTROPHILS % (AUTO) 55.3 % (40.0-70.0); PLATELET COUNT (AUTO) 110 K/uL (130-430)
[2019-02-13 07:09] LABS: BASOPHILS # (AUTO) 0.1 K/uL (0.0-0.2); EOSINOPHILS # (AUTO) 0.2 K/uL (0.0-0.4); LYMPHOCYTES # (AUTO) 1.5 K/uL (1.0-5.5); MONOCYTES # (AUTO) 0.5 K/uL (0.0-1.0); NEUTROPHILS # (AUTO) 2.8 K/uL (1.8-7.7)
[2019-02-13 07:19] LABS: CALCIUM 8.5 mg/dL (8.4-11.0)
[2019-02-13 07:30] VITALS: BP_SYST 123
[2019-02-13 07:50] VITALS: BP_SYST 134
[2019-02-13] MEDS ORDERED: MULTIVITS,CA,MINERALS/IRON/FA 1 TABLET PO SCH (09:00)
[2019-02-13] MEDS ORDERED: THIAMINE HCL 100 MG TABLET PO SCH ×2 (09:00)
[2019-02-13] MEDS ORDERED: DILTIAZEM HCL 240 MG CAP.SR.24H PO SCH ×2 (09:00)
[2019-02-13] MEDS: DIGOXIN 0.125 MG TABLET PO SCH (09:00)
[2019-02-13] MEDS ORDERED: PARoxetine HCL 20 MG TABLET PO SCH (09:00)
[2019-02-13] MEDS ORDERED: OMEPRAZOLE 20 MG CAPSULE.DR (PriLOSEC) PO SCH ×2 (09:00)
[2019-02-13] MEDS ORDERED: SPIRONOLACTONE 25 MG TABLET (ALDACTONE) PO SCH ×2 (09:00)
[2019-02-13] MEDS ORDERED: METOPROLOL SUCCINATE 25 MG TAB.SR.24H (TOPROL XL) PO SCH ×2 (09:00)
[2019-02-13] MEDS ORDERED: FOLIC ACID 1 MG TABLET PO SCH ×2 (09:00)
[2019-02-13] MEDS ORDERED: ALLOPURINOL 300 MG TABLET (ZYLOPRIM) PO SCH ×2 (09:00)
[2019-02-13] MEDS: SPIRONOLACTONE 50 MG TABLET (ALDACTONE) PO SCH (09:33)
[2019-02-13] MEDS: PARoxetine HCL 20 MG TABLET PO SCH (09:33)
[2019-02-13] MEDS: FUROSEMIDE 20 MG TABLET PO SCH (09:34)
[2019-02-13] MEDS: OMEPRAZOLE 20 MG CAPSULE.DR (PriLOSEC) PO SCH (09:34)
[2019-02-13] MEDS: MULTIVITS,CA,MINERALS/IRON/FA 1 TABLET PO SCH (09:34)
[2019-02-13] MEDS: DILTIAZEM HCL 180 MG CAP.SR.24H PO SCH (09:35)
[2019-02-13] MEDS: APIXABAN 2.5 MG TABLET PO SCH ×2 (09:36→21:25)
[2019-02-13 12:12] VITALS: BP_SYST 108
[2019-02-13 16:49] VITALS: BP_SYST 112
[2019-02-13] MEDS: cefTRIAXone 1 GM in D5W 50 ML IV SCH (17:56)
[2019-02-13 21:21] VITALS: BP_SYST 105
[2019-02-13 23:36] LABS: APPEARANCE,SPUN,BODY FLUID CLEAR (CLEAR); BF APPEARANCE UNSPUN HAZY (CLEAR); BODY FLUID COLOR YELLOW (LT YELLOW); BODY FLUID SOURCE/ TYPE ASCITES; SOURCE/TYPE ,BODY FLUID ASCITES
[2019-02-13 23:37] LABS: BODY FLUID OTHER CELLS 0 %; BODY FLUID TOTAL VOLUME 2150 mL; EOSINOPHIL, BODY FLUID 0 %; LYMPHOCYTES, BODY FLUID 55 %; MONOCYTES,BODY FLUID 39 %; NEUTROPHIL, BODY FLUID 6 %; RBC, BODY FLUID 678 /uL; WBC, BODY FLUID 403 /uL
[2019-02-14 00:18] VITALS: BP_SYST 108
[2019-02-14 00:54] LABS: BODY FLUID GLUCOSE 114 mg/dL; BODY FLUID TOTAL PROTEIN 3.1 g/dL
[2019-02-14] MEDS: HYDROcodone/ACETAMIN 10-325 MG TAB PO PRN ×2 (03:00→08:07)
[2019-02-14] MEDS: NORMAL SALINE 5 ML DISP.SYRIN IVF SCH (06:00)
[2019-02-14 08:03] VITALS: BP_SYST 99
[2019-02-14] MEDS: SPIRONOLACTONE 50 MG TABLET (ALDACTONE) PO SCH (08:03)
[2019-02-14] MEDS: FUROSEMIDE 20 MG TABLET PO SCH (08:03)
[2019-02-14 08:05] LABS: HEMOGLOBIN 14.4 g/dL (14.0-18.0); MEAN CORPUSCULAR HEMOGLOBIN 30 pg (27-31); MEAN CORPUSCULAR HGB CONC 34 % (32-36); MEAN CORPUSCULAR VOLUME 89 fL (79.0-98.0); RED BLOOD CELL COUNT(AUTO) 4.73 MIL/uL (4.2-6.2); RED CELL DISTRIBUTION WIDTH 14.4 % (9.0-15.0); WHITE BLOOD COUNT (AUTO) 5.3 K/uL (4.8-10.8)
[2019-02-14 08:06] LABS: BASOPHILS # (AUTO) 0.1 K/uL (0.0-0.2); BASOPHILS % (AUTO) 1.1 % (0.0-2.0); EOSINOPHILS # (AUTO) 0.2 K/uL (0.0-0.4); EOSINOPHILS % (AUTO) 4.2 % (0.0-4.0); ERYTHROCYTE SEDIMENTATION RATE 7 MM/HR (0-15); LYMPHOCYTES # (AUTO) 1.5 K/uL (1.0-5.5); LYMPHOCYTES % (AUTO) 29.4 % (20.5-51.5); MONOCYTES # (AUTO) 0.5 K/uL (0.0-1.0); MONOCYTES % (AUTO) 9.6 % (1.7-9.3); NEUTROPHILS # (AUTO) 2.9 K/uL (1.8-7.7); NEUTROPHILS % (AUTO) 55.7 % (40.0-70.0); PLATELET COUNT (AUTO) 113 K/uL (130-430)
[2019-02-14] MEDS: MULTIVITS,CA,MINERALS/IRON/FA 1 TABLET PO SCH (08:06)
[2019-02-14] MEDS: PARoxetine HCL 20 MG TABLET PO SCH (08:06)
[2019-02-14] MEDS: OMEPRAZOLE 20 MG CAPSULE.DR (PriLOSEC) PO SCH (08:06)
[2019-02-14] MEDS: APIXABAN 2.5 MG TABLET PO SCH (08:09)
[2019-02-14 08:12] LABS: ALBUMIN 2.9 g/dL (3.4-4.8); C-REACTIVE PROTEIN QUANT 0.9 mg/dL (0-0.5); CALCIUM 8.5 mg/dL (8.4-11.0); CREATININE 0.91 mg/dL (0.55-1.30); POTASSIUM 3.9 mmol/L (3.5-5.1); TOTAL BILIRUBIN 0.8 mg/dL (0.0-1.0)
[2019-02-14] MEDS: DIGOXIN 0.125 MG TABLET PO SCH (09:00)
[2019-02-14] MEDS: DILTIAZEM HCL 180 MG CAP.SR.24H PO SCH (09:00)
[2019-02-14 12:07] VITALS: BP_SYST 116
[2019-02-14] MEDS ORDERED: CIPR-211 PO (12:56)
[2019-02-14 13:06] VITALS: BP_SYST 116
[2019-02-14] MEDS: HYDROcodone/ACETAMIN 5-325 MG TAB (NORCO/ VICODIN) PO PRN (13:42)
[2019-02-14 16:00] VITALS: BP_SYST 110
== END 2019-02-14 16:03 | disposition home or self-care (01) | DRG 280 ==
LOC: SED 16:09 → SMU 19:11 → STU 02-12 18:33
PROVIDERS: ADMIT Preventive Medicine Preventive Medicine/Occupational Environmental Medicine; ATTEND Preventive Medicine Preventive Medicine/Occupational Environmental Medicine
PROC: 0W9G3ZZ Drainage of Peritoneal Cavity, Percutaneous Approach (ICD-10-PCS; principal; 2019-02-13)
DX: K70.31 Alcoholic cirrhosis of liver with ascites (principal); K65.2 Spontaneous bacterial peritonitis; J18.1 Lobar pneumonia, unspecified organism; I48.91 Unspecified atrial fibrillation; N39.0 Urinary tract infection, site not specified; F32.9 Major depressive disorder, single episode, unspecified; F41.9 Anxiety disorder, unspecified; I10 Essential (primary) hypertension; K59.00 Constipation, unspecified; K62.89 Other specified diseases of anus and rectum; M10.9 Gout, unspecified; Z80.6 Family history of leukemia; Z80.7 Family history of other malignant neoplasms of lymphoid, hematopoietic and related tissues; Z86.73 Personal history of transient ischemic attack (TIA), and cerebral infarction without residual deficits
CPT/HCPCS: 36415; 49083; 71045; 80048; 80053; 81000-TC; 82042; 82105; 82150-TC; 82550-TC; 82947-TC; 83605; 83690-TC; 84157-TC; 84484; 85025; 85610-TC; 85651-TC; 85730-TC; 86140; 87040-TC; 87086; 88108; 89051-TC; 89060-TC; 93005; 96360; 99285; G0378; J0696; J1956; J7030; J7060

== ENCOUNTER 2019-10-21 22:12 | Emergency (ER) | payer MEDICAID ==
[~2019-10-21] VITALS: Ht 185.4 cm; Wt 90.7 kg
[~2019-10-21 22:12] MED LIST changes: -ALLO300T2 PO; +CIPR-211 PO; +DIGO125T79 PO; -FOLI-43 PO; +FURO-150 PO; -LEVO750T45 PO; -METO25TA3 PO; -OMEP20CA10 PO; +OMEP40CA33 PO; -SPIR25TA PO; +SPIR50TA PO; -THIA100T13 PO
[2019-10-21 22:40] VITALS: BP_SYST 117
--- NOTE | 2019-10-22 00:29 | NUR ---
Called in x 3, no answer
--- NOTE | 2019-10-22 00:29 | NUR ---
Patient left without being seen. No further treatment provided. ER MD aware
== END 2019-10-22 00:29 | disposition left against medical advice (07) ==
LOC: SED 22:12
DX: R10.9 Unspecified abdominal pain (principal); Z53.21 Procedure and treatment not carried out due to patient leaving prior to being seen by health care provider